=== PATIENT | male | born 1980 | race Caucasian/White ===

== ENCOUNTER 2018-06-18 17:20 | Emergency (ER) | payer BC ==
[~2018-06-18] VITALS: Ht 177.8 cm; Wt 68.2 kg
[2018-06-18 18:27] VITALS: BP 121/88; PULSE 86; TEMP 98.3
== END 2018-06-18 18:27 | disposition home or self-care (01) ==
LOC: COL.ER 17:20
DX: S80.811A Abrasion, right lower leg, initial encounter (principal); Z23 Encounter for immunization; W22.8XXA Striking against or struck by other objects, initial encounter; Y92.009 Unspecified place in unspecified non-institutional (private) residence as the place of occurrence of the external cause